=== PATIENT | female | born 1970 | race Caucasian/White ===

== ENCOUNTER 2019-02-05 12:21 | Observation (INO) | payer OTHER ==
[~2019-02-05] VITALS: Ht 165.1 cm; Wt 103.4 kg
[2019-02-05] MEDS ORDERED: SODIUM CHLORIDE 0.9% 1000ML 1,000 ML ONE ×2 (12:39→14:10)
[2019-02-05 12:49] LABS: BASOPHILS % 0.2 % (0.0-1.0); EOSINOPHILS # (AUTO) 0.1 (0.0-0.4); EOSINOPHILS % 1.2 % (0.0-6.0); HEMATOCRIT 39.3 % (34.2-44.1); HEMOGLOBIN 12.9 g/dL (12.0-16.0); LYMPHOCYTES # (AUTO) 3.1 (1.0-3.2); LYMPHOCYTES % 32.3 % (18.0-39.1); MEAN CORPUSCULAR HEMOGLOBIN 28.3 pg (28-32); MEAN CORPUSCULAR HGB CONC 32.8 g/dL (31-35); MEAN CORPUSCULAR VOLUME 86.2 fL (81-99); MONOCYTES # (AUTO) 0.6 (0.2-0.8); MONOCYTES % 5.9 % (4.4-11.3); NEUTROPHILS # (AUTO) 5.7 (2.1-6.9); NEUTROPHILS % 60.2 % (38.7-80.0); PLATELET COUNT 381 x10e3/uL (140-360); RED BLOOD COUNT 4.56 x10e6/uL (3.6-5.1); RED CELL DISTRIBUTION WIDTH 13.2 % (11.7-14.4)
[2019-02-05 12:56] LABS: BILIRUBIN,URINE NEGATIVE (NEGATIVE); CLARITY,URINE SL CLOUDY (CLEAR); COLOR,URINE YELLOW (YELLOW); KETONES,URINE NEGATIVE (NEGATIVE); LEUKOCYTE ESTERASE ,URINE 1+ (NEGATIVE); NITRITE,URINE NEGATIVE (NEGATIVE); PROTEIN,URINE DIPSTICK NEGATIVE (NEGATIVE); URINE UROBILINOGEN 0.2 mg/dL (0.2 - 1)
[2019-02-05] MEDS ORDERED: ONDANSETRON HCL INJ 2MG/ML 2ML 2 MG/ML VIAL IV PRN (13:00)
--- NOTE | 2019-02-05 13:09 | Diagnostic Imaging Report ---
Examination: Single AP view of the chest. COMPARISON: None. INDICATION: Low heart rate, vertigo DISCUSSION: The lungs are well-inflated and without consolidation, pleural effusion, or pneumothorax. Borderline enlargement of the cardiac silhouette without pulmonary edema. No acute osseous abnormality. IMPRESSION: No acute cardiopulmonary abnormality. Borderline enlargement of the cardiac silhouette without vascular decompensation. Signed by: Dr. Fabio Gonzalez M.D. on 02/05/2019 1:05 PM
[2019-02-05 13:10] LABS: MAGNESIUM 2.5 MG/DL (1.3-2.1)
[2019-02-05 13:11] LABS: INR 0.85; PROTHROMBIN TIME 12.1 seconds (11.9-14.5)
[2019-02-05 13:12] LABS: BACTERIA,URINE MODERATE /HPF; EPITHELIAL CELLS,URINE MODERATE /LPF; PARTIAL THROMBOPLASTIN TIME 26.3 seconds (23.8-35.5)
[2019-02-05 13:19] LABS: ALANINE AMINOTRANSFERASE 16 IU/L (0-55); ALBUMIN/GLOBULIN RATIO 1.1 (0.8-2.0); ALKALINE PHOSPHATASE 126 IU/L (40-150); ANION GAP 12.1 mmol/L (8-16); BLOOD UREA NITROGEN 9 mg/dL (7-26); BUN/CREATININE RATIO 13 (6-25); CALCIUM 9.8 mg/dL (8.4-10.2); CARBON DIOXIDE 26 mmol/L (22-29); CHLORIDE 106 mmol/L (98-107); CREATINE KINASE 50 IU/L (29-168); CREATININE, SERUM 0.69 mg/dL (0.57-1.11); EST GLOMERULAR FILTRATION RATE > 60 ML/MIN (60-); GLUCOSE 102 mg/dL (74-118); POTASSIUM 4.1 mmol/L (3.5-5.1); SODIUM 140 mmol/L (136-145)
--- NOTE | 2019-02-05 13:35 | Diagnostic Imaging Report ---
History: Vertigo Comparison studies: None Technique: Axial images were obtained from the skull base to the vertex. Coronal and sagittal reconstructions obtained from the axial data. Dose modulation, iterative reconstruction, and/or weight based adjustment of the mA/kV was utilized to reduce the radiation dose to as low as reasonably achievable. Findings: Scalp/skull: No abnormalities. No fractures, blastic or lytic lesions. Extra-axial spaces: No masses. No fluid collections. Brain sulci: Appropriate for age. Ventricles: Normal in size and configuration. No hydrocephalus. Parenchyma: No abnormal densities. No masses, hemorrhage, acute or chronic cortical vascular insults. Sellar/suprasellar region: No abnormalities Craniocervical junction: Patent foramen magnum. No Chiari one malformation. IMPRESSION: No abnormalities . . Signed by: DR Anrdea Willson M.D. on 02/05/2019 1:32 PM
[2019-02-05 13:38] LABS: THYROID STIMULATING HORMONE 1.429 uIU/mL (0.350-4.940)
--- NOTE | 2019-02-05 13:41 | NUR ---
Received patient via stretcher from ER. AAOX4 to time,person, place, situation. Respirations even and unlabored. Tele #[phone] SR 63 1st degree block. Denies pain. Oriented patient to room. Instructed to use call light for assistance. Voiced understanding. Will continue to monitor.
[2019-02-05] MEDS ORDERED: CEFTRIAXONE SOD 1 GM/NS 50 ML 50 ML IV SCH ×2 (13:45→14:00)
--- OUTSIDE RECORDS SUMMARY | 2019-02-05 13:58 | XMS REPORT ---
Author Author [facility] Address Unknown Phone Unavailable Care Team Providers Care Sales Performance Analyst Name Role Phone Slava JOSE Unavailable Unavailable Problems This patient has no known problems. Allergies, Adverse Reactions, Alerts This patient has no known allergies or adverse reactions. Medications This patient has no known medications. Results Test Description Test Time Test Comments Text Results Atomic Results Result Comments CT BRAIN WO 2019-02-05 13:31:00 [facility] [address] [id number] Patient Name: APRIL GONZALEZ MR #: [id number] : 1970 Age/Sex: 48/F Req #: [id number] Adm Physician: Ordered by: DB MEJIA NP Report #: [id number] Location: ER Room/Bed: Procedure: [id number] CT/CT BRAIN WO Exam Date: 02/05/19 Exam Time: 1240 REPORT STATUS: Signed History: Vertigo Comparison studies: None Technique: Axial images were obtained from the skull base to the vertex. Coronal and sagittal reconstructions obtained from the axial data. Dose modulation, iterative reconstruction, and/or weight based adjustment of the mA/kV was utilized to reduce the radiation dose to as low as reasonably achievable. Findings: Scalp/skull: No abnormalities. No fractures, blastic or lytic lesions. Extra-axial spaces: No masses. No fluid collections. Brain sulci: Appropriate for age. Ventricles: Normal in size and configuration. No hydrocephalus. Parenchyma: No abnormal densities. No masses, hemorrhage, acute or chronic cortical vascular insults. Sellar/suprasellar region: No abnormalities Craniocervical junction: Patent foramen magnum. No Chiari one malformation. IMPRESSION: No abnormalities . . Signed by: DR Andrea Willson M.D. on 02/05/2019 1:32 PM Dictated By: ANDREA BELLO MD 31 Transcribed By: VERENA on 02/05/191331 COPY TO: DB MEJIA NP CHEST SINGLE (PORTABLE) 2019-02-05 13:04:00 [address] [address] Patient Name: APRIL GONZALEZ MR #: [id number] : 1970 Age/Sex: 48/F Req #: [id number] Adm Physician: Ordered by: DB MEJIA NP Report #: [id number] Location: ER Room/Bed: Procedure: [id number] DX/CHEST SINGLE (PORTABLE) Exam Date: Exam Time: REPORT STATUS: Signed Examination: Single AP view of the chest. COMPARISON: None. INDICATION: Low heart rate, vertigo DISCUSSION: The lungs are well-inflated and without consolidation, pleural effusion, or pneumothorax. Borderline enlargement of the cardiac silhouette without pulmonary edema. No acute osseous abnormality. IMPRESSION: No acute cardiopulmonary abnormality. Borderline enlargement of the cardiac silhouette without vascular decompensation. Signed by: Dr. Lizbeth Rivas M.D. on 02/05/2019 1:05 PM Dictated By: LIZBETH RIVAS MD 1303 Transcribed By: VERENA on 02/05/19 130 COPY TO: DB MEJIA NP
[2019-02-05 14:00] VITALS: BP 161/70
[2019-02-05 14:01] VITALS: BP 161/70
[2019-02-05 14:03] VITALS: BP 161/70
[2019-02-05] MEDS: SODIUM CHLORIDE 0.9% 1000ML 1,000 ML IV SCH (14:10)
[2019-02-05] MEDS ORDERED: LISINOPRIL10 MG PO (14:20)
[2019-02-05] MEDS ORDERED: METOPROLOL SUCC25 MG PO (14:20)
[2019-02-05] MEDS ORDERED: DICYCLOMINE HCL10 MG PO (14:20)
[2019-02-05] MEDS ORDERED: LEVOTHYROXINE75 MCG PO (14:20)
[2019-02-05] MEDS ORDERED: ESTRADIOL1 MG PO (14:20)
[2019-02-05] MEDS ORDERED: LIOTHYRONINE SO5 MCG PO (14:20)
[2019-02-05] MEDS ORDERED: BENADRYL25 M1 PO (14:20)
[2019-02-05] MEDS ORDERED: ACETAMINOPHEN 325 MG TAB PO PRN (14:45)
[2019-02-05 16:06] VITALS: BP 132/62
--- NOTE | 2019-02-05 19:00 | NUR ---
RECEIVED BEDSIDE SHIFT REPORT FROM DAY SHIFT RN. AAOX 4. BED ALARM IS ON. BED IS LOCKED AND AT LOWEST POSITION. CALL LIGHT WITHIN REACH. PT DENIES NEEDS AT THIS TIME
--- NOTE | 2019-02-05 19:17 | NUR ---
Report given to oncoming nurse of patient's status. NO s/s of acute distress noted.
[2019-02-05 19:30] VITALS: BP 108/49
[2019-02-05 20:14] VITALS: BP 108/49
[2019-02-05] MEDS ORDERED: LISINOPRIL 10 MG TAB PO SCH (21:00)
--- NOTE | 2019-02-05 23:00 | Consultation ---
DATE OF CONSULTATION: 02/05/2019 Cardiology Consultation REASON FOR CONSULTATION: Bradycardia and lightheadedness. HISTORY OF PRESENT ILLNESS: Ms. Merritt is a 48-year-old female with past medical history of hypertension and a remote history of atrial fibrillation, status post catheter ablation procedure in April of 2013 in [facility], now cured, who has residual brief bursts of atrial arrhythmias and is followed by Dr. Leon. She at one point was morbidly obese and underwent gastric sleeve surgery and is maintained on vitamins for this and has subsequently lost weight. 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 She has been reporting a 3-week history of feeling progressively fatigued, dizziness, lightheadedness, worse when she stands, improves when she lays flat. When she changes position quickly, she noticed that her symptoms worsen. Overall, she feels overwhelming and fatigue and does not have energy. She usually has frequent lightheaded spells and went to her PCP for evaluation. She was brought here for further care and management. Upon admission, her blood pressure was 122/75 and pulse was noted to be in the low 40s. In terms of medications, she has been on beta aisha therapy since February of 2018, where she had a Holter by Dr. Leon, which showed brief SVT burst of atrial tachycardia and has been placed on 50 of Toprol-XL. Since that time, there have been no subsequent changes. PAST MEDICAL HISTORY: 1. Hypertension, essential. 2. Obesity status post gastric sleeve surgery. 3. History of atrial fibrillation status post catheter ablation in April of 2013 at [facility]. 4. Questionable atrial tachycardia bursts versus "atrial flutter" that is her understanding of her rhythm issue. PAST SURGICAL HISTORY: History of gastric sleeve surgery. FAMILY HISTORY: Father, biological is unknown. Mother of a heart attack at age of 70. One brother from congestive heart failure at 53 and sister had heart issues. SOCIAL HISTORY: She is a lifelong nonsmoker. Denies any alcohol or illicit drug use. ALLERGIES: INCLUDE IODINATED CONTRAST, ACETAMINOPHEN, HYDROCODONE, DILAUDID, MORPHINE, AND PENTAZOCINE. MEDICATIONS: Include Benadryl 25 mg q.6 hours p.r.n., Bentyl 10 mg q.6 hours p.r.n., estradiol 10 mg b.i.d., Synthroid 75 mcg daily, liothyronine 25 mcg daily, lisinopril 10 mg daily, and Toprol-XL 50 mg daily. REVIEW OF SYSTEMS: GENERAL: Positive for fatigue, malaise. Denies any fevers, chills, or any weight changes. HEENT: No headache. Positive for lightheadedness. No sore throat, stuffy nose. RESPIRATORY: Denies any pleuritic chest pain. No cough or wheezing. CARDIOVASCULAR: Denies any chest pain or discomfort. No angina symptoms. Positive for lightheadedness. Has small brief bursts of heart racing, lasting several seconds. No syncope. GASTROINTESTINAL: Denies any abdominal pain, bright red blood per rectum, melena, hematemesis. HEMATOLOGY: No easy bruising or bleeding. GENITOURINARY: Denies any dysuria, pyuria, or change in her frequency. MUSCULOSKELETAL: Denies any back pain or leg swelling. No edema. No typical claudication symptoms. ENDOCRINE: Denies any heat or cold intolerance. NEUROLOGIC: Denies any focal weakness, numbness, tingling, seizures, headache. She had a TIA or stroke. PSYCH: Normal mood. No depression or anxiety. PHYSICAL EXAMINATION: VITAL SIGNS: 65 inches, 228 pounds. BMI is 37.9, temperature of 96.9, pulse of 55, respiratory rate 20, blood pressure 132/62, and 98% on room air. GENERAL: Well-nourished, well-developed, obese lady, who is currently in no apparent distress. HEENT: Normocephalic, atraumatic. Pupils equal and reactive to light. EOMs are intact. Oropharynx is clear. NECK: No elevation of jugular venous pulsation. No carotid bruits. CARDIOVASCULAR: Bradycardic. Normal S1, S2. 2/6 systolic murmur at the left upper sternal border. LUNGS: Largely clear to auscultation bilaterally. ABDOMEN: Soft, nontender, nondistended. Normoactive bowel sounds. No hepatosplenomegaly. There is old surgical scar. BACK: No costovertebral angle tenderness. EXTREMITIES: Warm with 2+ bilateral radial pulses, 1 to 2+ femoral pulses, and 2+ pedal pulses. No edema. NEUROLOGIC: Cranial nerves 2 through 12 are intact. Strength is 5/5. Grossly nonfocal. PSYCH: Normal fluent speech. Appropriate affect. No anxiety or delusions. LABORATORY DATA: White count of 9.5, hemoglobin 12.9, hematocrit 39.3, platelets of 381. Sodium 140, potassium 4.1, chloride 106, bicarb 26, BUN 9, creatinine 0.69, glucose of 102, calcium of 9.8, magnesium of 2.5, AST 20, ALT 16, alkaline phosphatase 126, total protein of 7.7, albumin of 4.0. TSH is 1.429. Troponin is less than 0.001. INR is 0.85. UA shows 6-10 white cells. EKG reveals sinus bradycardia. Brain CT reveals no abnormalities. Chest x-ray is unremarkable. DIAGNOSES: 1. Lightheadedness with orthostatic symptoms. 2. Questionable symptomatic bradycardia. 3. Remote history of atrial fibrillation, status post ablation. 4. Intermittent brief spells of atrial tachycardia. 5. Hypothyroidism. 6. Prior history of bariatric sleeve surgery. PLAN/RECOMMENDATIONS: 1. From a cardiovascular standpoint, we will go ahead and recommend holding her beta aisha for now. 2. We will monitor on telemetry. 3. The patient may benefit from liberalizing blood pressure as her symptoms may be related to that. 4. We have tried to tease out if this is vertigo spells and she says she has clearly had vertigo before and this is different. 5. We will continue thyroid replacement therapy. Her TSH is within normal limits. 6. We will check echocardiogram to evaluate her heart structurally. 7. We have briefly discussed with her that if she indeed did have atrial flutter or significant atrial arrhythmias that EP may be an option. However, she at the present time is adamantly against any sort of catheter based ablation therapy. 8. We will continue to monitor this patient. Thank you for this referral. MD DOMINIK Corbin/LEILA /[id number]
[2019-02-06] VITALS: BP 122/57
[2019-02-06] MEDS: SODIUM CHLORIDE 0.9% 1000ML 1,000 ML IV SCH ×2 (00:17→09:47)
[2019-02-06] MEDS ORDERED: SODIUM CHLORIDE 0.9% 1000ML 1,000 ML ONE ×2 (00:20→09:46)
[2019-02-06 04:00] VITALS: BP 105/55
[2019-02-06 05:51] LABS: % IRON SATURATION 16 % (15-50); IRON 56 ug/dL (50-170); TOTAL IRON BINDING CAPACITY 358 ug/dL (261-478); TRANSFERRIN 256 mg/dL (180-382)
[2019-02-06] MEDS ORDERED: LEVOTHYROXINE SODIUM 75 MCG TAB PO SCH (06:00)
[2019-02-06] MEDS ORDERED: LIOTHYRONINE SODIUM 5 MCG TAB PO SCH (06:00)
--- NOTE | 2019-02-06 07:14 | NUR ---
PT AWAKE RESP EVEN AND UNLABORED, NO C/O PAIN WHEN ASKED, PT ABLE TO MAKE NEEDS KNOWN, CALL LIGHT IN REACH.
[2019-02-06 07:45] VITALS: BP 124/58
[2019-02-06 08:00] VITALS: BP 124/58
--- NOTE | 2019-02-06 08:30 | NUR ---
ECHO AT BEDSIDE. PT TOLERATING WELL.
[2019-02-06 12:08] VITALS: BP 126/58
--- NOTE | 2019-02-06 13:38 | NUR ---
pt discharge home without prescriptions, pt was asked to stop Metoprolol medication, iv site removed at this time no swelling no redness to site.
--- NOTE | 2019-02-06 19:04 | Discharge Summary ---
PRIMARY CARE DOCTOR: Dr. Judith Villafana. FINAL DIAGNOSIS: Symptomatic bradycardia. SECONDARY DIAGNOSES: 1. Dehydration. 2. Previous bariatric surgery. 3. NO urinary tract infection. 4. Hypertension. PEWTER FINISHER: Dr. Pagan, Cardiology. PROCEDURES/STUDIES PERFORMED: Echocardiogram. HISTORY: Per H and P. HOSPITAL COURSE: The patient's metoprolol was held. Her bradycardia is better. Currently, the patient is feeling much better along with IV fluid. The patient has some pyuria, but this is likely not a clean catch. Also, the patient has no symptoms. She did get IV Rocephin empirically. The patient was due to monitor her heart rate, potentially she may have tachy-tod syndrome. The patient is to follow up with her [facility] process mold technician. Potentially, she may need to see an patch washer. The patient was seen and examined today. Her TSH, her folate, her iron studies, and her vitamin B12 levels are all normal. CONDITION ON DISCHARGE: Improved. DISCHARGE MEDICATIONS: Please see medication reconciliation form. MD JOHANA Castle/LEILA /[id number] cc: [facility], Paras SANCHEZ
[2019-02-08] MEDS ORDERED: ESTRADIOL 1 MG TAB PO SCH (09:00)
== END 2019-02-06 13:48 | disposition home or self-care (01) ==
LOC: ER 12:21 → MED/SURG2 13:55
PROVIDERS: ADMIT Internal Medicine; ATTEND Internal Medicine
DX: R00.1 Bradycardia, unspecified (principal); E03.9 Hypothyroidism, unspecified; I95.1 Orthostatic hypotension; E66.9 Obesity, unspecified; Z68.37 Body mass index [BMI] 37.0-37.9, adult; I47.1 Supraventricular tachycardia; E86.0 Dehydration; R42 Dizziness and giddiness; I10 Essential (primary) hypertension; R53.1 Weakness; Z88.5 Allergy status to narcotic agent; Z88.8 Allergy status to other drugs, medicaments and biological substances; Z88.6 Allergy status to analgesic agent; Z91.041 Radiographic dye allergy status; Z98.84 Bariatric surgery status; Z82.49 Family history of ischemic heart disease and other diseases of the circulatory system
CPT/HCPCS: 36415 ×2; 70450; 71045; 80053; 81001; 82550; 82553; 82607; 82746; 83540; 83735; 84443; 84466; 84484 ×2; 85025; 85610; 85730; 87086; 93005; 93306; 97116; 97161; 99284; G0378 ×2; J0696; J7030 ×2

== ENCOUNTER 2021-02-10 01:11 | Emergency (ER) | payer BC, OTHER ==
[~2021-02-10] VITALS: Ht 165.1 cm; Wt 103.4 kg
[~2021-02-10 01:11] MED LIST: BENADRYL25 M1 PO; DICYCLOMINE HCL10 MG PO; ESTRADIOL1 MG PO; LEVOTHYROXINE75 MCG PO; LIOTHYRONINE SO5 MCG PO; LISINOPRIL10 MG PO; METOPROLOL SUCC25 MG PO
[2021-02-10] MEDS ORDERED: ASPIRIN 81 MG CHEW TAB PO ONE (01:30)
[2021-02-10 01:31] LABS: BASOPHILS % 0.4 % (0.0-1.0); EOSINOPHILS # (AUTO) 0.2 (0.0-0.4); EOSINOPHILS % 2.2 % (0.0-6.0); HEMATOCRIT 34.2 % (34.2-44.1); HEMOGLOBIN 11.3 g/dL (12.0-16.0); LYMPHOCYTES # (AUTO) 3.8 (1.0-3.2); LYMPHOCYTES % 38.1 % (18.0-39.1); MEAN CORPUSCULAR HEMOGLOBIN 27.5 pg (28-32); MEAN CORPUSCULAR VOLUME 83.2 fL (81-99); MONOCYTES # (AUTO) 0.8 (0.2-0.8); MONOCYTES % 8.3 % (4.4-11.3); NEUTROPHILS % 50.7 % (38.7-80.0); PLATELET COUNT 347 x10e3/uL (140-360); RED BLOOD COUNT 4.11 x10e6/uL (3.6-5.1); RED CELL DISTRIBUTION WIDTH 13.8 % (11.7-14.4)
[2021-02-10] MEDS ORDERED: ATROPINE SULFATE 1 MG/ML VIAL ONE (01:31)
[2021-02-10] MEDS ORDERED: AMIODARONE 900MG 500 ML IV ONE ×2 (01:43→01:45)
[2021-02-10] MEDS ORDERED: AMIODARONE HCL 150MG 100 ML ONE (01:43)
[2021-02-10] MEDS ORDERED: AMIODARONE HCL 150 MG/100 ML BAG IV ONE (01:45)
[2021-02-10 01:51] LABS: ALANINE AMINOTRANSFERASE 18 IU/L (0-55); ALKALINE PHOSPHATASE 102 IU/L (40-150); ANION GAP 17.5 mmol/L (8-16); BLOOD UREA NITROGEN 17 mg/dL (7-26); BUN/CREATININE RATIO 18 (6-25); CARBON DIOXIDE 25 mmol/L (22-29); CHLORIDE 95 mmol/L (98-107); CREATINE KINASE 59 IU/L (29-168); CREATININE, SERUM 0.97 mg/dL (0.57-1.11); EST GLOMERULAR FILTRATION RATE 60 ML/MIN (60-); GLUCOSE 117 mg/dL (74-118); POTASSIUM 4.5 mmol/L (3.5-5.1); SODIUM 133 mmol/L (136-145)
[2021-02-10] MEDS ORDERED: ONDANSETRON HCL INJ 2MG/ML 2ML 2 MG/ML VIAL IV STA (02:11)
[2021-02-10] MEDS ORDERED: ONDANSETRON HCL INJ 2MG/ML 2ML 2 MG/ML VIAL ONE (02:21)
[2021-02-10 04:45] VITALS: BP 116/81
== END 2021-02-10 04:55 | disposition other institution (70) ==
LOC: ER 01:26
DX: R00.2 Palpitations (principal); I48.91 Unspecified atrial fibrillation; R07.9 Chest pain, unspecified; R94.31 Abnormal electrocardiogram [ECG] [EKG]; I10 Essential (primary) hypertension; E03.9 Hypothyroidism, unspecified; Z20.822 Contact with and (suspected) exposure to COVID-19
CPT/HCPCS: 36415; 71045; 80053; 82550; 82553; 83880; 84484; 85025; 93005; 99284; J0461; J2405; U0002

== ENCOUNTER 2021-04-10 15:01 | Emergency (ER) | payer BC ==
[~2021-04-10] VITALS: Ht 165.1 cm; Wt 98.2 kg
[2021-04-10] MEDS ORDERED: ELIQUIS2.5 MG PO (15:35)
[2021-04-10] MEDS ORDERED: METOPROLOL SUCC50 MG PO (15:35)
[2021-04-10] MEDS ORDERED: POTASSIUM GLUCO99 M1 (15:35)
[2021-04-10] MEDS ORDERED: MAGNESIUM CITR125 MG (15:35)
[2021-04-10] MEDS ORDERED: TRIAMTERENE-HCTZ1 EA PO (15:35)
[2021-04-10] MEDS ORDERED: PANTOPRAZOLE SO20 MG PO (15:35)
[2021-04-10] MEDS ORDERED: CYMBALTA30 MG (15:35)
[2021-04-10 16:30] VITALS: BP 122/83
== END 2021-04-10 16:38 | disposition home or self-care (01) ==
LOC: FSED 15:30
DX: R23.3 Spontaneous ecchymoses (principal); Z79.01 Long term (current) use of anticoagulants; I10 Essential (primary) hypertension; E03.9 Hypothyroidism, unspecified; R94.31 Abnormal electrocardiogram [ECG] [EKG]; Z98.84 Bariatric surgery status
CPT/HCPCS: 80053; 85025; 85610; 93005; 99282

== ENCOUNTER 2021-08-04 11:00 | Emergency (ER) | payer BC, OTHER ==
[~2021-08-04] VITALS: Ht 165.1 cm; Wt 93.9 kg
[~2021-08-04 11:00] MED LIST changes: +CYMBALTA30 MG; +ELIQUIS2.5 MG PO; +MAGNESIUM CITR125 MG; +METOPROLOL SUCC50 MG PO; +PANTOPRAZOLE SO20 MG PO; +POTASSIUM GLUCO99 M1; +TRIAMTERENE-HCTZ1 EA PO
[2021-08-04] MEDS ORDERED: HYDROCODONE/APAP 5MG-325MG TAB PO ONE (11:30)
[2021-08-04] MEDS ORDERED: ACETAMINOPHEN 325 MG TAB PO ONE (11:45)
[2021-08-04] MEDS ORDERED: ACETAMINOPHEN 325 MG TAB ONE (11:51)
[2021-08-04] MEDS ORDERED: ONDANSETRON HCL 4 MG ORAL DISINTEGRATING TAB ONE (11:51)
[2021-08-04] MEDS ORDERED: ONDANSETRON HCL 4 MG ORAL DISINTEGRATING TAB PO ONE (12:00)
[2021-08-04] MEDS ORDERED: ACETAMINOPHEN-1 EAC4 PO (14:42)
== END 2021-08-04 15:12 | disposition home or self-care (01) ==
LOC: FSED 11:24
DX: S52.121A Displaced fracture of head of right radius, initial encounter for closed fracture (principal); W01.0XXA Fall on same level from slipping, tripping and stumbling without subsequent striking against object, initial encounter; Y93.01 Activity, walking, marching and hiking; Y92.019 Unspecified place in single-family (private) house as the place of occurrence of the external cause; I10 Essential (primary) hypertension; I48.91 Unspecified atrial fibrillation; E03.9 Hypothyroidism, unspecified; E78.5 Hyperlipidemia, unspecified; Z88.5 Allergy status to narcotic agent; Z88.8 Allergy status to other drugs, medicaments and biological substances; Z91.041 Radiographic dye allergy status; Z79.01 Long term (current) use of anticoagulants; M79.7 Fibromyalgia
CPT/HCPCS: 73030; 73080; 73110; 73200; 99284; Q0162

== ENCOUNTER 2022-03-24 15:39 | Emergency (ER) | payer BC ==
[~2022-03-24] VITALS: Ht 152.4 cm; Wt 104.5 kg
[~2022-03-24 15:39] MED LIST changes: +ACETAMINOPHEN-1 EAC4 PO
[2022-03-24] MEDS ORDERED: NEURONTIN100 MG PO (15:59)
[2022-03-24] MEDS ORDERED: ONE DAILY WOME1 EACH (15:59)
[2022-03-24] MEDS ORDERED: LORAZEPAM 1 MG TAB PO NR (16:45)
[2022-03-24] MEDS ORDERED: LORAZEPAM 0.5 MG TAB ONE (16:48)
[2022-03-24] MEDS ORDERED: LIDOCAINE HCL 1% LOCAL INJ 20 ML VIAL ONE (16:48)
[2022-03-24] MEDS ORDERED: KETOROLAC TROME10 MG PO (17:24)
[2022-03-24] MEDS ORDERED: CEFDINIR300 MG PO (17:24)
== END 2022-03-24 17:36 | disposition home or self-care (01) ==
LOC: FSED 16:10
DX: S91.202A Unspecified open wound of left great toe with damage to nail, initial encounter (principal); I10 Essential (primary) hypertension; I48.91 Unspecified atrial fibrillation; E03.9 Hypothyroidism, unspecified; I25.10 Atherosclerotic heart disease of native coronary artery without angina pectoris; F32.A Depression, unspecified; X58.XXXA Exposure to other specified factors, initial encounter; Z88.8 Allergy status to other drugs, medicaments and biological substances; Z88.6 Allergy status to analgesic agent; Z91.041 Radiographic dye allergy status; Z79.02 Long term (current) use of antithrombotics/antiplatelets; Z79.899 Other long term (current) drug therapy; Z98.61 Coronary angioplasty status
CPT/HCPCS: 11730; 99283; J2001

== ENCOUNTER 2022-10-23 23:53 | Observation (INO) | payer BC ==
[~2022-10-23] VITALS: Ht 165.1 cm; Wt 106.1 kg
[~2022-10-23 23:53] MED LIST changes: +CEFDINIR300 MG PO; +KETOROLAC TROME10 MG PO; +NEURONTIN100 MG PO; +ONE DAILY WOME1 EACH
[2022-10-24] VITALS (8 sets, daily range): BP systolic 115–147; BP diastolic 56–87
[2022-10-24] MEDS ORDERED: SODIUM CHLORIDE 0.9% 1000ML 1,000 ML IV STA (00:04)
[2022-10-24] MEDS ORDERED: FAMOTIDINE 20 MG/2 ML VIAL IV ONE ×2 (00:15→00:29)
[2022-10-24] MEDS ORDERED: ONDANSETRON HCL INJ 2MG/ML 2ML 2 MG/ML VIAL IV ONE (00:15)
[2022-10-24] MEDS ORDERED: ONDANSETRON HCL INJ 2MG/ML 2ML 2 MG/ML VIAL ONE ×2 (00:29→12:41)
[2022-10-24] MEDS ORDERED: SODIUM CHLORIDE 0.9% 1000ML 1,000 ML ONE (00:29)
[2022-10-24] MEDS ORDERED: PIPERACILLIN/TAZOBACTAM 3.375 GM VIAL ONE (01:57)
[2022-10-24] MEDS ORDERED: DIPHENHYDRAMINE HCL INJ 50 MG/ML VIAL IV PRN (02:15)
[2022-10-24] MEDS ORDERED: ENALAPRILAT IV INJ 1.25 MG/ML VIAL IV PRN (02:15)
[2022-10-24] MEDS ORDERED: KETOROLAC TROMETHAMINE 30 MG/ML VIAL IV PRN ×2 (02:30→20:15)
[2022-10-24] MEDS: LACTATED RINGER'S 1,000 ML IV SCH ×3 (03:08→22:08)
[2022-10-24 03:09] LABS: INR 1.04; PARTIAL THROMBOPLASTIN TIME 29.2 seconds (23.8-35.5); PROTHROMBIN TIME 13.8 seconds (11.9-14.5)
[2022-10-24] MEDS ORDERED: FLECAINIDE ACE100 MG PO (03:59)
[2022-10-24] MEDS ORDERED: ONDANSETRON HCL INJ 2MG/ML 2ML 2 MG/ML VIAL IV PRN ×2 (04:30→20:15)
[2022-10-24 06:21] LABS: BASOPHILS % 0.3 % (0.0-1.0); EOSINOPHILS # (AUTO) 0.1 (0.0-0.4); EOSINOPHILS % 1.9 % (0.0-6.0); HEMATOCRIT 31.6 % (34.2-44.1); LYMPHOCYTES # (AUTO) 2.4 (1.0-3.2); LYMPHOCYTES % 32.7 % (18.0-39.1); MEAN CORPUSCULAR HEMOGLOBIN 23.7 pg (28-32); MEAN CORPUSCULAR HGB CONC 28.5 g/dL (31-35); MEAN CORPUSCULAR VOLUME 83.2 fL (81-99); MONOCYTES # (AUTO) 0.6 (0.2-0.8); NEUTROPHILS # (AUTO) 4.2 (2.1-6.9); PLATELET COUNT 350 x10e3/uL (140-360); RED CELL DISTRIBUTION WIDTH 15.2 % (11.7-14.4)
[2022-10-24 06:46] LABS: CALCIUM 8.6 mg/dL (8.4-10.2); CREATININE, SERUM 0.76 mg/dL (0.57-1.11)
[2022-10-24] MEDS: FAMOTIDINE 20 MG/2 ML VIAL IV SCH ×2 (09:33→17:53)
[2022-10-24] MEDS ORDERED: FLECAINIDE ACETATE 100 MG TAB PO PRN (11:00)
[2022-10-24] MEDS ORDERED: ACETAMINOPHEN 325 MG TAB PO PRN (11:00)
[2022-10-24] MEDS ORDERED: POTASSIUM CHLORIDE 20MEQ/100ML 100 ML IV ONE (11:30)
[2022-10-24] MEDS ORDERED: KETOROLAC TROMETHAMINE 30 MG/ML VIAL ONE (12:41)
[2022-10-24] MEDS ORDERED: DEXAMETHASONE SOD PHOS INJ 4 MG/ML SDV ONE (12:41)
[2022-10-24] MEDS ORDERED: METOCLOPRAMIDE HCL 10 MG/2ML VIAL ONE (12:41)
[2022-10-24] MEDS ORDERED: PROPOFOL IV EMULSION 10 MG/ML 20 ML VIAL ONE (12:41)
[2022-10-24] MEDS ORDERED: LIDOCAINE HCL 2% LOCAL INJ 5 ML SDV VIAL INJ ONE (12:41)
[2022-10-24] MEDS ORDERED: SUCCINYLCHOLINE CHLORIDE 20 MG/ML 10ML VIAL ONE (12:41)
[2022-10-24] MEDS ORDERED: ROCURONIUM BROMIDE 10 MG/ML 5ML VIAL IV ONE (12:41)
[2022-10-24] MEDS ORDERED: SEVOFLURANE INHAL SOLN 250 ML PEN BTL ONE (12:41)
[2022-10-24] MEDS ORDERED: POVIDONE IODINE 0.05% 0.05 % ML PO ONE (12:41)
[2022-10-24] MEDS ORDERED: MIDAZOLAM HCL 2 MG/2 ML VIAL ONE (15:29)
[2022-10-24] MEDS ORDERED: FENTANYL CITRATE/PF 100MCG/2 ML INJ ONE (15:29)
[2022-10-24] MEDS: GABAPENTIN 100 MG CAP PO SCH (17:00)
[2022-10-24] MEDS ORDERED: BUPIVACAINE HCL 0.5% INJ 30 ML VIAL INJ ONE (19:07)
[2022-10-24] MEDS ORDERED: ACETAMINOPHEN 1000 MG/100 ML 100 ML IV ONE (19:41)
[2022-10-24] MEDS ORDERED: SUGAMMADEX SODIUM 200 MG/2 ML VIAL IV ONE (20:14)
[2022-10-24] MEDS ORDERED: ACETAMINOPHEN 1000 MG/100 ML IV PRN (20:15)
[2022-10-24] MEDS ORDERED: TRAMADOL HCL 50 MG TAB PO PRN (20:15)
[2022-10-25] VITALS: BP 121/60
[2022-10-25 04:00] VITALS: BP 108/66
[2022-10-25 05:27] LABS: BASOPHILS % 0.1 % (0.0-1.0); HEMATOCRIT 31.7 % (34.2-44.1); HEMOGLOBIN 9.4 g/dL (12.0-16.0); LYMPHOCYTES % 13.1 % (18.0-39.1); MEAN CORPUSCULAR HEMOGLOBIN 23.9 pg (28-32); MEAN CORPUSCULAR HGB CONC 29.7 g/dL (31-35); MEAN CORPUSCULAR VOLUME 80.7 fL (81-99); MONOCYTES # (AUTO) 0.1 (0.2-0.8); MONOCYTES % 1.6 % (4.4-11.3); NEUTROPHILS # (AUTO) 6.3 (2.1-6.9); NEUTROPHILS % 84.9 % (38.7-80.0); PLATELET COUNT 373 x10e3/uL (140-360); RED BLOOD COUNT 3.93 x10e6/uL (3.6-5.1); RED CELL DISTRIBUTION WIDTH 15.3 % (11.7-14.4)
[2022-10-25 05:45] LABS: ANION GAP 13.2 mmol/L (8-16); CALCIUM 8.8 mg/dL (8.4-10.2); CREATININE, SERUM 0.82 mg/dL (0.57-1.11); POTASSIUM 4.2 mmol/L (3.5-5.1)
[2022-10-25] MEDS ORDERED: LEVOTHYROXINE SODIUM 100 MCG TAB PO SCH (06:00)
[2022-10-25 08:18] VITALS: BP 136/70
[2022-10-25 08:59] VITALS: BP 136/70
[2022-10-25] MEDS ORDERED: DULOXETINE HCL 30 MG DELAYED RELEASE PO SCH (09:00)
[2022-10-25] MEDS ORDERED: METOPROLOL SUCCINATE 50 MG TAB XL PO SCH (09:00)
[2022-10-25] MEDS ORDERED: TRIAMTERENE/HCTZ 37.5-25 MG TAB PO SCH (09:00)
[2022-10-25] MEDS: GABAPENTIN 100 MG CAP PO SCH ×2 (09:59→17:28)
[2022-10-25] MEDS: FAMOTIDINE 20 MG/2 ML VIAL IV SCH ×2 (10:00→17:28)
[2022-10-25] MEDS ORDERED: ULTRAM 50MG50 MG PO ×2 (10:46→19:37)
[2022-10-25 12:00] VITALS: BP 121/66
[2022-10-25] MEDS ORDERED: SODIUM CHLORIDE 0.9% 250ML 250 ML ONE (13:50)
[2022-10-25] MEDS ORDERED: KEFLEX125 MG/5 M PO (16:09)
[2022-10-25 16:30] VITALS: BP 107/66
[2022-10-25] MEDS ORDERED: CEPHALEXIN500 MG PO (20:04)
== END 2022-10-25 18:11 | disposition home or self-care (01) ==
LOC: FSED 10-24 00:04 → MED/SURG3 10-24 01:52 → INTOOBSV 10-24 01:52
PROVIDERS: ADMIT Internal Medicine; ATTEND Internal Medicine
DX: K35.80 Unspecified acute appendicitis (principal); E87.6 Hypokalemia; I48.91 Unspecified atrial fibrillation; Z79.01 Long term (current) use of anticoagulants; U07.1 COVID-19; D64.9 Anemia, unspecified; M79.7 Fibromyalgia; E03.9 Hypothyroidism, unspecified; I10 Essential (primary) hypertension; Z88.5 Allergy status to narcotic agent; Z88.8 Allergy status to other drugs, medicaments and biological substances; Z91.041 Radiographic dye allergy status
CPT/HCPCS: 36415 ×2; 44970; 74176; 80048 ×2; 80053; 81003; 85025 ×2; 85610; 85730; 88304; 93005; 99284; G0378 ×2; J0131; J2250; J2405; J2543 ×2; J3010; J3480; J7030; J7050; J7121 ×2; U0002; J0330; J1100; J1885; J2001; J2765